=== PATIENT | male | born 1980 | race Caucasian/White ===

== ENCOUNTER 2016-07-25 09:00 | Inpatient (IN) | payer OTHER ==
--- NOTE | ~2016-07-25 | PN ---
Unit #: [id number] #: [id number] Patient: AMISH COTA [id number] [facility] [address] [place] [address] [id number] MR#: [id number] NAME: AMISH COTA ROOM: P211 Age: 36 Sex: M Admission Date: 07/25/2016 : 1980 Attending Physician: Damon Wynn M.D. Admitting Physician: Damon Wynn M.D. Primary Care Physician: Generic Doctor Not In System [facility] PROGRESS NOTES DATE 07/27/2016 DISCUSSION Mr. Ybarra is a 36-year-old male, seen on 07/27/2016. The patient HIV negative, RPR negative. The patient sad, depressed, withdrawn, isolative, guarded but denied any thoughts of harming self or others, able to maintain safe behavior. REVIEW OF SYSTEMS Complete review of systems unremarkable. MENTAL STATUS EXAMINATION General appearance: Patient dressed casually. Attention span and concentration, fair. Oriented in place and person. Mood and affect, sad and dysphoric. Speech, monotone. Thought process, concrete. The patient denied any thoughts of harming self or others. Recent and remote memory, poor. Insight and judgment, poor. DIAGNOSES 1. Opiate use disorder, severe. 2. Amphetamine use disorder, severe. 3. Mood disorder, NOS. ASSESSMENT/PLAN Advised to continue with the current medication and therapeutic protocol, and if needed consider further adjustment of medication. Dictated by... Kentrell Weber/charlette TD: 07/29/2016 05:59 JOB #: [id number] Unit #: [id number] #: [id number] Patient: AMISH COTA [facility] PROGRESS NOTES Page 1 of 1 X Damon Wynn MD PROGRESS NOTE
--- NOTE | ~2016-07-25 | HP ---
Unit #: [id number] #: [id number] Patient: AMISH COTA [id number] [place] [address] [id number] MR#: [id number] NAME: AMISH COTA ROOM: P211 Age: 36 Sex: M Admission Date: 07/25/2016 : 1980 Attending Physician: Damon Wynn M.D. Admitting Physician: Damon Wynn M.D. Primary Care Physician: Generic Doctor Not In System HISTORY AND PHYSICAL HISTORY OF PRESENT ILLNESS Amish is a 36 year old admitted to [address] [place] [address] because of his continued polysubstance abuse which includes benzodiazepines, IV meth and heroin. PAST MEDICAL HISTORY History of illicit substance abuse to include IV drugs. PAST SURGICAL HISTORY 1. Appendectomy. 2. T and A. 3. Left eye. ALLERGIES Penicillin (itching). SOCIAL HISTORY He smokes 1 pack per day. Denies alcohol. Admits to a history of poly-illicit substance abuse to include benzodiazepines, amphetamines and heroin. FAMILY HISTORY Medically noncontributory. REVIEW OF SYSTEMS CONSTITUTIONAL: No fever or chills. HEENT: Denies any sore throat, ear pain or runny nose. CARDIOVASCULAR: Denies chest pain, irregular heart rhythm or palpitations. CHEST: Denies shortness of breath or cough. No hemoptysis. GASTROINTESTINAL: Denies nausea, vomiting, diarrhea or chronic constipation. ENDOCRINE: Denies history of increased thirst or urination. No recent significant weight loss or gain. GENITOURINARY: Denies dysuria, frequency, or hematuria. SKIN: Denies any rashes. HEMATOLOGIC: Denies history of increased bleeding or bruising. MUSCULOSKELETAL: Denies any hot, swollen joints. No generalized muscle pain. NEUROLOGIC: Denies problems with vision or speech. No frequent, severe headaches. No numbness, tingling or weakness in any extremities. Denies loss of bladder or bowel control. CURRENT MEDICATIONS Detox protocol. Unit #: [id number] #: [id number] Patient: AMISH COTA PHYSICAL EXAMINATION GENERAL: Alert, well-nourished, in no apparent distress. VITAL SIGNS: Blood pressure 120/80, heart rate 72, respirations 16, temperature 98.6. WEIGHT: 210. HEIGHT: 6 feet 0 inches. SKIN: Warm and dry without rash or lesion. HEENT: Normocephalic. TMs not viewed. Oral and nasal passages clear. Conjunctivae clear. Right pupil is round and reactive to light. Left pupil is keyholed and sluggish. Extraocular movements intact. NECK: Supple without lymphadenopathy or thyromegaly. HEART: Regular rate and rhythm without murmur. LUNGS: Clear. ABDOMEN: Soft, nontender. : Not done. EXTREMITIES: No evidence of cyanosis, clubbing or edema. Moves all without focal deficit. NEUROLOGICAL: Grossly within normal limits. Cranial Nerves: II: Visual domingo are intact. III, IV AND : Extraocular movements are intact. Right pupil is round. Left pupil is keyholed. V: Facial sensation is grossly normal. VII: Facial movements and expression are normal. VIII: Auditory acuity grossly intact. IX, X: Uvula is midline. Phonation is normal. XI: Patient shrugs shoulders and turns head normally. XII: Tongue protrudes in the midline. Sensory and Motor Function: Sensory and motor sensation is grossly normal. Motor: moves all extremities well. Coordination: Gait is normal. Deep Tendon Reflexes: Intact. IMPRESSION Psychiatric admission. RECOMMENDATIONS PSYCHIATRIC: Per psychiatrist. MEDICAL: See no contraindications to participate in facility's activities. MEDICAL PROGNOSIS Good. MEDICAL CONDITION Stable. Dictated by... Shayy HidalgoAMarina. for Kentrell King/brenda TD: 07/25/2016 18:26 JOB #: [id number] Unit #: [id number] #: [id number] Patient: AMISH COTA HISTORY AND PHYSICAL Page 1 of 1 X Damaris Alonso HISTORY AND PHYSICAL
--- NOTE | ~2016-07-25 | PN ---
Unit #: [id number] #: [id number] Patient: AMISH COTA [id number] [facility] [address] [place] [address] [id number] I MR#: [id number] NAME: AMISH COTA ROOM: [facility] Age: 36 Sex: M Admission Date: 07/25/2016 : 1980 Attending Physician: Damon Wynn M.D. Admitting Physician: Damon Wynn M.D. Primary Care Physician: Generic Doctor Not In System [facility] PROGRESS NOTES DATE OF SERVICE: 07/26/2016 DISCUSSION Mr. Ybarra is a 36-year-old male, seen on 07/26/2016. The patient's mood was labile, guarded, paranoid, agitated, racing thoughts, and anxiety. REVIEW OF SYSTEMS A complete review of system is unremarkable. MENTAL STATUS EXAMINATION General appearance, the patient is dressed in hospital attire. Attention, span and concentration, poor. Oriented in place and person. Mood and affect, labile. Speech, monotone. Thought process, circumstantial and guarded, paranoid, suicidal ideation. Denied any homicidal ideation. Guarded. Recent and remote memory, poor. Insight and judgment, poor. DIAGNOSES 1. Polysubstance abuse. 2. Psychosis, not otherwise specified. ASSESSMENT AND PLAN I advised to continue with current medication and therapeutic protocol. The patient to continue with detox protocol, detox monitoring, and Zyprexa and Vistaril combination. We will continue to follow. If needed, consider further adjustment of medication. Dictated by... Kentrell Weber/pilar TD: 07/26/2016 12:25 JOB #: [id number] Unit #: [id number] #: [id number] Patient: AMISH COTA PROGRESS NOTES Page 1 of 1 X Damon Wynn MD PROGRESS NOTE
--- NOTE | ~2016-07-25 | PA ---
Unit #: [id number] #: [id number] Patient: AMISH COTA [id number] [facility] [address] [place] [address] [id number] I MR#: [id number] NAME: AMISH COTA ROOM: P211 Age: 36 Sex: M Admission Date: 07/25/2016 : 1980 Date of Assessment: 07/26/2016 Attending Physician: Damon Wynn M.D. Admitting Physician: Damon Wynn M.D. Primary Care Physician: Generic Doctor Not In System PSYCHIATRIC ASSESSMENT DATE OF SERVICE 07/26/2016. INFORMANTS The patient's reliability, fair; chart reliability, good. CHIEF COMPLAINT Detox, depression, and suicidal ideation. HISTORY OF PRESENT ILLNESS Mr. Ybarra is a 36-year-old male, presented with the above-mentioned complaint. The patient has a history of depression, opioid abuse, amphetamine abuse. The patient was found on a [place] dangling off the railing. The patient disclosed statement that he was thinking about jumping and did not care if he live or . The patient reported suicidal ideation with a plan to try to jump off the bridge. The patient reported just testing it earlier. The patient reports that he has been using meth and heroin through IV. The patient was somewhat guarded, racing thoughts, paranoid. The patient admitted tobacco use, age of onset 11; alcohol, age of onset 16; opioid, age of onset 26; amphetamine, age of onset 22. Longest period of sobriety 65 days and last period of sobriety in 2014. The patient reported history of blackouts, withdrawal symptom, IV drug abuse. No history of HIV or hepatitis. The patient reported abdominal cramping, irritability, diaphoresis, tremors. Needing inpatient admission at this time for psychiatric stabilization. PAST PSYCHIATRIC HISTORY Remarkable for history of previous treatment at [facility] in 2016 with similar condition; history of schizophrenia, admission in [facility] in the past. FAMILY HISTORY AND SOCIAL HISTORY The patient's family psychiatric illness is remarkable for history of substance abuse in grandfather. No history of abuse. No legal charges. MEDICAL HISTORY Unremarkable for any chronic medical condition. Musculoskeletal; muscle strength and tone, no atrophy or abnormal movement. Gait normal. MEDICATION HISTORY The patient was last discharged on [facility] and Vistaril. ALLERGIES Unit #: [id number] #: [id number] Patient: AMISH COTA No known drug allergies. SUBSTANCE ABUSE HISTORY History of amphetamine abuse. Please see above for detail. REVIEW OF SYSTEMS HEENT: Eyes, clear. Ears, nose, mouth, and throat; clear. CARDIOVASCULAR: Unremarkable. RESPIRATORY: Unremarkable. GI: Unremarkable. : Unremarkable. SKIN: Unremarkable. LYMPH NODE: Unremarkable. NEUROLOGIC: Unremarkable. ENDOCRINE: Unremarkable. HEMATOLOGIC: Unremarkable. ALLERGIC/IMMUNOLOGIC: Unremarkable. MUSCULOSKELETAL: Muscle strength and tone, no atrophy or abnormal movement. Gait normal. MENTAL STATUS EXAMINATION CONSTITUTIONAL: Measurement of vital signs; temperature 98.1, pulse 72, respirations 19, oxygen saturation 99%, blood pressure 119/79. Height 6 feet and weight 210 pounds. GENERAL APPEARANCE: The patient dressed casually. No facial deformity noted. MUSCULOSKELETAL: Please see above. PSYCHIATRIC EXAMINATION Description of speech; rapid and circumstantial. Description of thought process, circumstantial and guarded. Description of association, guarded and paranoid. Description of abnormal psychotic thinking; guarded, paranoid, mood lability, delusional, depression, suicidal ideation, substance abuse. Description of the patient's judgment; concerning everyday activity, poor. Social situation, poor. Concerning psychiatric condition, poor. Complete mental status examination; oriented in time, place, and person. Recent and remote memory, poor. Attention span and concentration, poor. Language; able to name object and repeat phrases. Fund of knowledge, poor. Vocabulary, poor. Mood and affect, sad and dysphoric. Insight and judgment, fair to poor. ASSETS AND LIABILITIES Assets; the patient is articulate, able to take care of his ADL. Liability; history of depression, substance abuse. ADMITTING DIAGNOSES Psychiatric: Opioid use disorder, severe, F11.20; amphetamine use disorder, severe, F15.20; mood disorder, not otherwise specified, F32.9; psychosis, not otherwise specified, F29.0; rule out schizophrenia, chronic paranoid type, F20.0. Secondary diagnosis: Deferred. Medical diagnosis: History of eye surgery. Stressors: Psychosocial stressor. Unit #: [id number] #: [id number] Patient: AMISH COTA PSYCHIATRIC PLAN AND TREATMENT GOAL 1. Advised to admit the patient on the inpatient unit. Provide safe, supportive, and structured environment. 2. Ordered labs; CBC, CMP, UA, and UDS. 3. Precaution for aggression, self-harm, detox protocol, and detox monitoring. 4. Plan to start the patient on Zyprexa 10 mg b.i.d. for mood stabilization. The patient to attend all the programing on the inpatient unit with group therapy, individual therapy, chemical dependency group. Treatment goal to attain euthymic mood, gain insight into his problem, and learn coping skills. DISCHARGE PLAN Plan to stabilize the patient and consider followup in outpatient program. ESTIMATED LENGTH OF STAY 5 days. Dictated by... Kentrell Weber/pilar TD: 07/26/2016 23:51 JOB #: [id number] PSYCHIATRIC ASSESSMENT Page 1 of 1 X Damon Wynn MD X PSYCHIATRIC ASSESSMENT
--- NOTE | ~2016-07-25 | DS ---
Unit #: [id number] #: [id number] Patient: AMISH COTA [id number] [place] [address] [id number] MR#: [id number] NAME: AMISH COTA ROOM: [facility] Age: 36 Sex: M Admission Date: 07/25/2016 : 1980 Discharge Date: 07/28/2016 Attending Physician: Damon Wynn M.D. Primary Care Physician: Generic Doctor Not In System DISCHARGE SUMMARY REASON FOR ADMISSION Detox and depression. DIAGNOSTIC STUDIES LABORATORY RESULTS: Remarkable for glucose 66, potassium 5.3. Urine toxicology positive for amphetamine. HOSPITAL COURSE The patient was admitted to inpatient unit on 07/25/2016 and discharged on 07/28/2016. The patient was treated on the inpatient unit with expressive therapy, chemical dependency group, medication management. The patient was somewhat anxious, nervous, agitated during his stay, but responsive to treatment, taking his medication. The patient continues to be isolative, flat affect, withdrawn, and guarded. Subsequently, the patient was discharged as the patient received maximum benefit. DISCHARGE MEDICATIONS Zyprexa 10 mg at bedtime for mood stabilization and Vistaril 50 mg t.i.d. for anxiety. DISCHARGE DIAGNOSES Psychiatric: Opioid use disorder, severe, F11.20; amphetamine use disorder, severe, F15.20; mood disorder, not otherwise specified, F32.9; psychosis, not otherwise specified, F29.0; rule out schizophrenia, chronic, paranoid type. Secondary diagnosis: Deferred. Medical diagnosis: History of eye surgery. Stressors: Psychosocial stressor. DISCHARGE INSTRUCTIONS The patient to follow up in outpatient clinic as per social science teacher. CONDITION ON DISCHARGE The patient was pleasant and cooperative. Denied any psychotic symptom or any suicidal ideation. PROGNOSIS Guarded. DIET AND ACTIVITY Unit #: [id number] #: [id number] Patient: AMISH COTA As tolerated. Dictated by... Damon Wynn M.D. RUSTY/pilar TD: 07/28/2016 22:11 JOB #: [id number] DISCHARGE SUMMARY Page 1 of 1 X Damon Wynn MD DISCHARGE SUMMARY
[~2016-07-25 09:00] MED LIST: [UNRECOGNIZED DRUG - REMARK]
[2016-07-26 12:20] LABS: BASOPHIL# 0.1 X10e3 (0-0.3); BASOPHIL% 1.5 % (0-2.5); EOSINOPHIL# 0.3 X10e3 (0-0.7); EOSINOPHIL% 5.4 % (0.0-7.0); HEMATOCRIT 51.5 % (38.0-50.0); HEMOGLOBIN 16.5 gm/dL (13.0-16.0); LYMPHOCYTE# 1.8 X10e3 (1.0-3.5); LYMPHOCYTE% 31.4 % (17.0-45.0); MEAN CELL VOLUME 96.5 FL (83-96); MEAN CORPUSCULAR HEMOGLOBIN 30.9 PG (28-34); MEAN CORPUSCULAR HGB CONC 32.1 g/dL (30-36); MEAN PLATELET VOLUME 8.2 FL (6.5-11.5); MONOCYTE# 0.7 X10e3 (0-1.0); MONOCYTE% 12.2 % (3.0-12.0); NEUTROPHIL# 2.9 X10e3 (1.5-7.1); NEUTROPHIL% 49.5 % (40-75); PLATELET COUNT 233 X10e3 (140-420); RED BLOOD COUNT 5.33 X10e (3.90-5.60); RED CELL DISTRIBUTION WIDTH 14.9 % (11.0-15.5); WHITE BLOOD COUNT 5.8 X10e3 (4.0-10.5)
[2016-07-26 12:24] LABS: URINE APPEARANCE CLEAR; URINE BILIRUBIN NEG (NEG); URINE BLOOD NEG (NEG); URINE COLOR YELLOW; URINE GLUCOSE NEG (NEG); URINE KETONE NEG (NEG); URINE LEUKOCYTE ESTERASE NEG (NEG); URINE NITRATE NEG (NEG); URINE PH 7.5 (5-8); URINE PROTEIN NEG (NEG); URINE SPECIFIC GRAVITY 1.013 (1.003-1.035); URINE UROBILINOGEN 0.2 MG/DL (NEG)
[2016-07-26 12:28] LABS: DIFF IND NO
[2016-07-26 12:39] LABS: ALBUMIN SERUM 3.7 g/dL (3.5-5.0); BILIRUBIN,TOTAL 0.3 mg/dL (0.2-2.0); GLOM FILT RATE Estimated 97.1 mL/min (>60); POTASSIUM 5.3 mmol/L (3.5-5.1); PROTEIN TOTAL SERUM 6.3 g/dL (6.0-8.3)
[2016-07-26 12:54] LABS: AMPHETAMINE POS (NEG); BARBITURATES NEG (NEG); BENZODIAZEPINES NEG (NEG); COCAINE NEG (NEG); MARIJUANA NEG (NEG); OPIATES NEG (NEG); TRICYCLIC ANTIDEPRESSANTS NEG (NEG); U METHADONE NEG (NEG)
[2016-07-31 13:35] LABS: HA AB IGM (HEPPAN) Nonreactive (()); HB CORE AB IGM (HEPPAN) Nonreactive (Nonreactive); HB S AG (HEPPAN) Nonreactive (Nonreactive); HEP C AB (HEPPAN) Reactive (Nonreactive)
== END 2016-07-28 08:50 | disposition home or self-care (01) | DRG 897 ==
LOC: P2S
PROVIDERS: Psychiatry & Neurology Psychiatry
DX: F11.20 Opioid dependence, uncomplicated (principal); F15.20 Other stimulant dependence, uncomplicated; F20.0 Paranoid schizophrenia; F32.9 Major depressive disorder, single episode, unspecified; F29 Unspecified psychosis not due to a substance or known physiological condition
CPT/HCPCS: 80053; 80074; 80307; 81003; 85025; 86592; 87522; 87806